=== PATIENT | female | born 1940 | race Caucasian/White ===

== ENCOUNTER → 2017-02-12 | Outpatient (CLI) | payer OTHER ==
[~2017-02-12] MED LIST: ATENOLOL50 MG PO; GLUCOTROL PO; LISINOPRIL20 MG PO; METFORMIN HCL1000 M1 PO; PRAVASTATIN SOD40 MG PO
--- NOTE | ~2017-02-12 | MY29 ---
[facility] RADIOLOGY TEXT RESULTS PATIENT: KIRK PARISH LOCATION: [facility] : 42 UNIT #: [id number] AGE: [address]: Agueda Ojeda APRN SEX: F ORDER DR: [id number] [facility] [address] [place], [place] [address] [id number] O MR#: [id number] Acc #: [id number] NAME: KIRK PARISH : 1940 SEX: F STUDY DATE/TIME: 02/12/2017 10:28 UNIT: [facility] ROOM: STUDY DESCRIPTION: MY EDGAR SCREENING W/ CAD BILAT Attending Physician: Agueda Ojeda A.P.R.N. Referring Physician: Agueda Ojeda A.P.R.N. Ordering Physician: Agueda Ojeda A.P.R.N. Primary Care Physician: Agueda Ojeda A.P.R.N. MEDICAL IMAGING REPORT This report is preliminary unless electronic signature is present EXAM Bilateral digital screening mammogram with CAD INDICATION Breast cancer screening. 76-year-old asymptomatic female. No personal or family history of breast cancer. COMPARISONS January 24, 2016, September 02, 2014, August 31, 2013, July 17, 2012, July 15, 2011, July 31, 2010, June 15, 2009, June 13, 2008 and June 22, 2007. FINDINGS The breasts are almost entirely fatty. No suspicious findings are present. IMPRESSION No mammographic evidence of malignancy. Annual screening mammography and clinical breast exam are recommended. A result letter will be sent to the patient. Patients over the age of 40 are entered into a reminder system with target due date for the next mammogram. BIRADS: 1 Negative Dictated by... Srikanth Whitfield M.D. THIS IS AN ELECTRONICALLY VERIFIED REPORT Srikanth Whitfield M.D. at 02/12/2017 11:07 PM ASHLEY/tmw [facility] RADIOLOGY TEXT RESULTS PATIENT: KIRK PARISH LOCATION: [facility] #: [id number] : 42 UNIT #: [id number] AGE: [address]: Agueda Ojeda APRN SEX: F ORDER DR: TD: 02/12/2017 22:02 JOB #: [id number] MEDICAL IMAGING REPORT Page 1 of 1 COPY
== END | disposition home or self-care (01) ==
LOC: CWCC 09:47
DX: Z12.31 Encounter for screening mammogram for malignant neoplasm of breast (principal)
CPT/HCPCS: G0202